=== PATIENT | male | born 1950 | race Caucasian/White ===

== ENCOUNTER 2024-01-08 09:30 | Outpatient (AMB) | payer MEDICARE, OTHER, SELFPAY ==
--- NOTE | 2024-01-08 09:26 | HO.SPINEOV ---
Intake Intake Visit Reasons: cervical stenosis Intake Note: Mr. Hi is here today for Neck pain that radiates towards the back Executive Director Of Nursing Required: No Allergies No Known Allergies Allergy (Verified 01/08/24 09:26) Assessment & Plan Assessment & Plan (1) Cervical radiculopathy: Code(s): M54.12 - Radiculopathy, cervical region Plan Dear colleague, Thank you for referring Gibran to our office today. He is a pleasant 73-year-old male who comes in today with a chief complaint of neck pain with shooting pains into his left arm. He states that this began back in July and reports no inciting incident. He sought evaluation by [facility] who attempted a left shoulder injection that did not provide much relief. When describing his radiation of pain he states it starts in his posterior neck over the top of his left shoulder down the posterior aspect of his left arm and terminates in his left hand. He reports associated symptoms of intermittent numbness/tingling that accompanies his shooting pain in a similar distribution. He does report significant pain in his left wrist, but reports this pain started abruptly in July, and denies any increased numbness/tingling with use, and denies nocturnal symptoms. He reports he has been to 6 weeks of physical therapy which he found was not helpful for him and only exacerbated his symptoms. He reports his neck pain worsens at night when attempting to lie down, and is somewhat alleviated with stretching/range of motion of his left arm. He is currently taking meloxicam to try and mitigate his symptoms with minimal relief. He also states he has exhausted [id number] remedies in an attempt to resolve his pain. PMH: History of cataract surgery, insomnia, anxiety, depression, hyperlipidemia, seasonal allergies. Social hx: Patient does not smoke, reports no substance use. Medications: Trazodone, bupropion, atorvastatin, citalopram, cetirizine, meloxicam. Allergies: NKDA. Physical exam: The patient has 5/5 strength in his upper and lower extremities. He does elicit pain to full strength testing when attempting to exhibit wrist flexion/extension and interossei resistance on the left. No acute sensational deficits, however the patient reports intermittent numbness and tingling of his left upper extremity. Reflexes 3+ in patella bilaterally, 2+ elsewhere. The patient is able to ambulate well and rises from a seated position without difficulty. (-) Chavez's, (-) clonus, (-) Tinel's at wrist bilaterally, (-) Phalen's bilaterally. Imaging review: MRI of the cervical spine completed at [place] shows diffuse spondylosis of the cervical spine. There is some loss of cervical lordosis seen from C4-6. There is posterior disc bulging at C5-6 and C6-7. There is moderate-severe left-sided foraminal stenosis at C5-6 and bilateral foraminal stenosis at C6-7 worse on the left which I would grade as moderate-severe. No cord signal change noted. Impression: Gibran is a pleasant 73-year-old male who comes in today with a chief complaint of posterior neck pain with shooting pain down his left arm and accompanied numbness/tingling since July 2023. He reports that the symptoms started abruptly, and is unable to identify an inciting incident. His symptoms are likely due to a left-sided cervical radiculopathy as a result of the left sided formainal stenosis noted on cervical MRI. He does complain of quite a bit of pain in his left wrist, however does not have a story that is consistent with carpal tunnel syndrome and has negative testing on exam for carpal tunnel. He states that his symptoms are significantly affecting his life at this point, he is unable to practice drumming which is 1 of his favorite past times, and is having difficulty sleeping at night due to the shooting pains he experiences when lying down. He reports he is now restricting what he does throughout the day and finds himself laying around the house much more due to his pain. We discussed the possibility of an ACDF at C5-6 and C6-7 to address his left-sided foraminal stenosis. He reports that he is at a point where he was willing to follow through with whatever recommendations we may have in order to alleviate his symptoms. I sent him for a set of flexion-extension x-rays of the cervical spine at the end of this visit, and informed him that I will be discussing his case with Dr. Swift who will review everything and make a surgical decision. I will call him next week after I am able to discuss this with Dr. Swift. Thank you for allowing us to care for your patient. The total time spent with this visit with this patient was 45 minutes reviewing history, physical exam, MRI imaging review, and implementation of treatment plan or further diagnostic testing Paramjit Swift MD,PhD [facility] Orders: Orders XR cervical spine 4V Today M54.12 - Radiculopathy, cervical region Coding Level of Care Code New Pt Level 4 (00628) Diagnoses Cervical radiculopathy M54.12
== END 2024-01-08 10:14 | disposition home or self-care (01) ==
PROVIDERS: PCP Internal Medicine; Referring Provider Physician Assistant; Visit Provider Physician Assistant
DX: M54.12 Radiculopathy, cervical region (principal)
CPT/HCPCS: 99204

== ENCOUNTER 2024-01-08 09:30 | Outpatient (REF) | payer MEDICARE, OTHER, SELFPAY ==
--- NOTE | ~2024-01-08 | XR_ITS ---
EXAMINATION: XR CERVICAL SPINE CLINICAL INFORMATION: Radiculopathy, cervical region COMPARISON: None available. TECHNIQUE: AP, lateral, lateral flexion and extension views of the cervical spine were obtained. FINDINGS: No fracture. Prevertebral soft tissues are within normal limits. There is marked disc space narrowing with marginal osteophyte formation at C5-C6 and C6-C7. There is also marked disc space narrowing at C7-T1. There is mild curve of the cervical spine, convex left. There is loss of the usual cervical lordosis. There is mild retrolisthesis of C3 respect to C4. XR/XR cervical spine 4V IMPRESSION: 1. Marked multilevel degenerative disc disease. 2. Loss of the usual cervical lordosis. 3. Mild retrolisthesis of C3 respect to C4, as discussed above.
== END 2024-01-08 09:31 | disposition home or self-care (01) ==
LOC: HO.HOSX 09:30
PROVIDERS: PCP Internal Medicine; Referring Provider Physician Assistant; Visit Provider Physician Assistant
DX: M54.12 Radiculopathy, cervical region (principal)
CPT/HCPCS: 72050; 99202

== ENCOUNTER → 2024-01-26 14:15 | Outpatient (BNV) | payer MEDICARE, OTHER, SELFPAY | PROVIDERS: Admitting Provider Neurological Surgery; PCP Internal Medicine; Visit Provider Internal Medicine | DX: I44.7 Left bundle-branch block, unspecified (principal) | CPT/HCPCS: 93010 ==

== ENCOUNTER 2024-01-28 | Day surgery (SDC) | payer MEDICARE, OTHER, SELFPAY ==
--- NOTE | 2024-01-26 | ECG_ITS ---
Test Reason : preop Blood Pressure : / mmHG Vent. Rate : 062 BPM Atrial Rate : 062 BPM P-R Int : 186 ms QRS Dur : 144 ms QT Int : 456 ms P-R-T Axes : 049 049 063 degrees QTc Int : 462 ms Normal sinus rhythm Left bundle branch block Abnormal ECG No previous ECGs available Referred By: Elaine Jerome Electronically Signed By:WILDER BLACK
[2024-01-26 13:23] VITALS: BP 162/89; PULSE 66; RESP 18; O2SAT 96; BMI 26.1
[2024-01-26 14:37] LABS: Hematocrit 41.9 % (42.0-52.0); Hemoglobin 14.7 g/dl (14.0-18.0); Mean Corpuscular HGB Conc 35.1 g/dl (31.0-36.0); Mean Corpuscular Hemoglobin 31.7 pg (27.0-33.0); Mean Corpuscular Volume 90.3 fL (80.0-98.0); Platelet Count 163 X10*3/uL (160-400); Red Blood Count 4.64 X10*6/uL (4.60-5.80); Red Cell Distribution Width 11.9 % (11.0-16.0); White Blood Count 5.5 X10*3/uL (4.8-10.8)
[2024-01-26 15:01] LABS: Anion Gap 11 (12-20); Blood Urea Nitrogen 14 mg/dL (9-16); Calcium 9.2 mg/dL (8.4-10.2); Carbon Dioxide 28 mmol/L (22-29); Chloride 107 mmol/L (96-108); Creatinine Clr Calc Pharmacy 52.4; Estimated Glomerular Filt Rate 57; Glucose Random 92 mg/dL (60-115); Potassium 4.4 mmol/L (3.3-5.1); Sodium 142 mmol/L (135-145)
--- NOTE | 2024-01-27 09:54 | HO.ANESPROP2 ---
Documented by User: Elaine Jerome NP 01/27/24 09:56 HPI - Anesthesia Eval Consult details Narrative: 73yo M for C5-6,C6-7 Ant Cerv Discectomy w/ fusion New LBBB on EKG. Pt denies CV symptoms. Nurse PAT only PMFSH Active Problems Active Problems: All Active Problems (Updated 01/26/24 @ 13:19 by Mila Figueroa RN) Cervical radiculopathy (Acute) Past Medical History Medical History Arthritis Weakness Numbness Seasonal allergies Depression Anxiety Insomnia Hyperlipidemia Surgical History Surgical History H/O colonoscopy Hx of cataract surgery Social History Social History Are you a primary healthcare administrative assistant to a significant other at home: No Do you presently have visiting nurse or other home services: No Patient Tobacco Use Status: Never used Tobacco Use of substances other than those prescribed or required for medical reasons: Yes Substance Use Type Other:: gummie Substance Use Frequency: Occasionally Have you been hit, kicked, punched, or otherwise hurt by someone within the past year? If so, by whom?: No Advance Directives: No Advance Directives Information Provided: No Advance Directives on File: No Recently lost weight without trying: No Eating poorly because of decreased appetite: No Nutrition Risks: No Nutritional Risk Poor oral hygiene: Yes (implants) Meds Allergies Allergy/AdvReac Type Severity Reaction Status Date / Time No Known Allergies Allergy Verified 01/28/24 10:18 Home Medications Medication Instructions Recorded Confirmed Last Taken Type atorvastatin 20 mg tablet 20 mg PO BEDTIME 01/25/24 01/26/24 Unknown History bupropion HCl 150 mg tablet,12 hr 150 mg PO BID 01/25/24 01/25/24 Unknown History sustained-release cetirizine 10 mg tablet 10 mg PO DAILY PRN Allergic 01/25/24 01/26/24 Unknown History Symptoms citalopram 40 mg tablet 40 mg PO DAILY 01/25/24 01/26/24 Unknown History meloxicam 15 mg tablet 15 mg PO DAILY PRN pain 01/25/24 01/26/24 Unknown History trazodone 50 mg tablet 50 - 100 mg PO BEDTIME PRN insomnia 01/25/24 01/26/24 Unknown History Exam Height,Weight and Vital Signs: Height 5 ft 8 in Weight 78.018 kg Last Vital Signs Pulse 66 01/26/24 13:23 Resp 18 01/26/24 13:23 BP 162/89 H 01/26/24 13:23 Pulse Ox 96 01/26/24 13:23 O2 Del Method Room Air 01/26/24 13:23 Pertinent Lab Results Pertinent Lab Results: Laboratory Tests 01/26/24 13:57 WBC 5.5 RBC 4.64 Hgb 14.7 Hct 41.9 L MCV 90.3 MCH 31.7 MCHC 35.1 RDW 11.9 Plt Count 163 MPV 10.0 Absolute Nucleated RBC 0.000 Nucleated RBC % (auto) 0.0 Sodium 142 Potassium 4.4 Chloride 107 Carbon Dioxide 28 Anion Gap 11 L BUN 14 Creatinine 1.25 Estim Creat Clear Calc 52.4 Estimated GFR 57 Random Glucose 92 Calcium 9.2 Narrative Narrative: EKG 01/2024 Vent. Rate : 062 BPM Atrial Rate : 062 BPM P-R Int : 186 ms QRS Dur : 144 ms QT Int : 456 ms P-R-T Axes : 049 049 063 degrees QTc Int : 462 ms Normal sinus rhythm Left bundle branch block Abnormal ECG No previous ECGs available Assessment and Plan Assessment Anesthesia Assessment: Chart Reviewed Documented by User: Drew Novoa MD 01/28/24 11:27 HPI - Anesthesia Eval Consult details Narrative: 73yo M for C5-6,C6-7 Ant Cerv Discectomy w/ fusion New LBBB on EKG. Pt denies CV symptoms. Nurse [facility] Past Medical History Medical History Arthritis Weakness Numbness Seasonal allergies Depression Anxiety Insomnia Hyperlipidemia Family History Family history of problems with anesthesia: No Surgical History Surgical History H/O colonoscopy Hx of cataract surgery History of Problems with Anesthesia: No Social History Social History Are you a primary healthcare administrative assistant to a significant other at home: No Do you presently have visiting nurse or other home services: No Patient Tobacco Use Status: Never used Tobacco Use of substances other than those prescribed or required for medical reasons: Yes Substance Use Type Other:: gummie Substance Use Frequency: Occasionally Have you been hit, kicked, punched, or otherwise hurt by someone within the past year? If so, by whom?: No Advance Directives: No Advance Directives Information Provided: No Advance Directives on File: No Recently lost weight without trying: No Eating poorly because of decreased appetite: No Nutrition Risks: No Nutritional Risk Poor oral hygiene: Yes (implants) Meds Allergies Allergy/AdvReac Type Severity Reaction Status Date / Time No Known Allergies Allergy Verified 01/28/24 10:18 Home Medications Medication Instructions Recorded Confirmed Last Taken Type atorvastatin 20 mg tablet 20 mg PO BEDTIME 01/25/24 01/26/24 Unknown History bupropion HCl 150 mg tablet,12 hr 150 mg PO BID 01/25/24 01/25/24 Unknown History sustained-release cetirizine 10 mg tablet 10 mg PO DAILY PRN Allergic 01/25/24 01/26/24 Unknown History Symptoms citalopram 40 mg tablet 40 mg PO DAILY 01/25/24 01/26/24 Unknown History meloxicam 15 mg tablet 15 mg PO DAILY PRN pain 01/25/24 01/26/24 Unknown History trazodone 50 mg tablet 50 - 100 mg PO BEDTIME PRN insomnia 01/25/24 01/26/24 Unknown History Exam Airway Mallampati Class: II TM Dist: >3cm Neck ROM: Limited Loose/Missing/Broken Teeth: Yes Heart: [id number] Lungs: cta b/l Assessment and Plan Assessment Anesthesia Assessment: Anesthesia Plan Discussed Final Anesthetic Review Family History of Problems with Anesthesia: No History of Problems with Anesthesia: No NPO: Yes ASA Class: III Final Preanesthetic Review: No Changes in Pt Med Stat, Meds/Allgs Chart Reviewed, Consent Obtained/Reviewed and Anes Risks/Benef Reviewed Patient Risk: Intermediate Procedure Risk: Intermediate Assessment/Block/Sedation in SS: Assess/Block/Sedation-SS Anesthetic Plan Anesthetic Plan: GA Disposition: Standard PACU
[2024-01-28] VITALS (15 sets, daily range): BP systolic 123–166; BP diastolic 70–88; PULSE 69–85; RESP 12–22; TEMP 36.6–36.7; O2SAT 93–97
--- NOTE | ~2024-01-28 | FL_ITS ---
EXAMINATION: XR FLUOROSCOPY WITH IMAGES CLINICAL INFORMATION: Cervical fusion COMPARISON: Cervical spine x-ray on 01/08/2024 TECHNIQUE: Fluoroscopy Supervised By: Dr. Swift. Fluoroscopy Time: 4.3sec. Cumulative Dose: 1.3870 mGy. DAP: 0.5257 Gycm2. Images: 1. FINDINGS: Fluoroscopy performed during cervical fusion. FL/FL guidance in OR IMPRESSION: Fluoroscopy performed in the OR. Please see the operative report for further information.
--- NOTE | 2024-01-28 07:15 | MHC.SHP ---
Pre-Procedural Eval Section A - 24 Hr Update-Section A only Date of Service: 01/28/24 The patient is an INPATIENT: No Changes since office visit: No Cold of Flu in the past 2 weeks, No New Medical Problems, No Changes in Medication and No Patient answered all questions The patient has been examined within 24 hours of the surgical procedure. The History & Physical has been completed within 30 days and I have reviewed it.: No Section B - Complete if H&P > 30 days Chief Complaint: Radiculopathy, cervical region Allergies: Allergies Allergy/AdvReac Type Severity Reaction Status Date / Time No Known Allergies Allergy Verified 01/08/24 09:26 Review of Systems Sugical H&P ROS: Negative: Constitution, Cardiovascular, Respiratory, Neurological, Psychiatric, Hem-Onc, Allergic/Immunologic, Gastrointestinal, Genitourinary, Musculoskeletal, Integumentary, Endocrine and Eyes/Ears/Nose/Throat Exam Surgical H&P Exam: Not Evaluated: HEENT, Not Evaluated: Heart, Not Evaluated: Lungs, Not Evaluated: Extremities, Not Evaluated: Abdomen, Not Evaluated: Skin and Not Evaluated: Neurological Plan Diagnosis/Plan: Unchanged C5-6, C6-7 ACDF Time Spent With Patient Time: Total time managing care of this patient today __8__ minutes.
[2024-01-28] MEDS: Lactated Ringers 1,000 ML 100 ML IVCONT (10:22)
[2024-01-28] MEDS: Gabapentin 300 MG CAPSULE PO (11:06)
[2024-01-28] MEDS: methocarbamoL 750 MG TABLET PO (11:06)
--- NOTE | 2024-01-28 13:57 | P.OP_ITS ---
Operative Note Operative Note Date of Service: 01/28/24 Narrative: Preoperative Diagnosis: Cervical radiculopathy due to degenerative disc disease Procedure: C5-C6, C6-C7 Anterior discectomy, arthrodesis and implantation cage ; C5-C7 anterior instrumentation ; local autograft; microscope Informed Consent was obtained for this operation. I have explained the nature, purpose and benefits of the operation. I have discussed the risks and benefit of the operation including possible complications or adverse events with patient/family. Alternative(s) were discussed with the patient with their relative benefits and risks as well as the consequences of not accepting the operation were included in obtaining consent. Surgeon: BRE FIGUEROA MD, PHD Procedure Assisted By: AMIRAH Triana Description of Procedure: This 73-year-old male suffering from left cervical radiculopathy. An MRI shows C5-6 C6-7 degenerative disc disease and foraminal stenosis. He was offered an anterior diskectomy and fusion of these levels. The procedure complications were explained. The patient was consented. The patient was brought to the operating room and endotracheally intubated. The patient was put in supine position with slight extension of the neck. Prep and drape was done followed by timeout. A mid cervical incision was made followed by opening of the platysma. The prevertebral fascia was reached following the natural planes while the physician assistant auto center manager provided manual retraction. The prevertebral fascia was opened to expose the disc space. A spinal needle was placed in the disk space to confirm the correct level with xray. The longus colli muscles were released bilaterally and a self retaining retractor was inserted. An initial diskectomy was done of the C5-6 and C6-7 disc spaces towards the posterior annulus. Two [place] pins were placed in the C5 and C6 vertebral bodies and distraction was give over the interspace.The microscope was brought in. The remainder of the discectomy was completed. A significant hypertrophied posterior longitudinal ligament was encountered. The posterior ligament was opened and resected to expose the underlying dura. Large osteophytes were resected from the body of C5-C6 and saved for autograft. Large osteophytes were resected from the bilateral foramina to decompress the bilateral C6 nerve roots. The endplates were prepared after which a 6 mm cage filled with autograft was inserted into the disc space. A separate attached plate was locked down with 2 x 14 mm screws as anterior instrumentation. Then attention was turned to the C6-7 disc space. Distraction was giving over the interspace. Again significant degeneration was encountered with large posterior osteophytes. The posterior longitudinal ligament was opened and resected. Osteophytes were resected from the body of C6 to decompress the spinal cord. Then more osteophytes were removed from the foramina and were causing significant foraminal stenosis. In the end good decompression of the spinal cord and exiting nerve root was obtained. The endplates were prepared after which a 6 mm cage was inserted into the disc space. A separate attached plate was locked down with 14 mm screws as anterior instrumentation. Final x-rays in AP and lateral projection showed a satisfactory position of the implants and anterior instrumentation. The physician assistant auto center manager took over. The [place] pin was removed. Hemostasis was done. He closed the incision in 2 layers with a 3-0 Vicryl. Steri-Strips used to approximate incision. An OpSite with Tegaderm was used to cover the incision. All sponge and needle counts were correct. Patient was extubated and transported in stable is to recovery room. Anesthesia: General Estimated Blood Loss (ml): 30 mL Duration of Surgery: 1 hour 15 Postoperative Plan: Discharge home Complications: None
--- NOTE | 2024-01-28 14:02 | PM.DS ---
DS: Providers Provider Date of Service: 01/28/24 Primary care physician: Radha Barrios MD DS: Summary Time Attestation Discharge Coordination Time (in mins): 15 Quality: Safe Use of Opioids Does Pt have an Active Cancer Diagnosis on the Problem List?: No Quality: Stroke Does the patient have a stroke diagnosis?: No Physical Exam Vital Signs: Vital Signs: Last Vital Signs Temp 98.1 F 01/28/24 10:31 Pulse 69 01/28/24 10:31 Resp 18 01/28/24 10:31 BP 159/79 H 01/28/24 10:31 Pulse Ox 97 01/28/24 10:31 O2 Del Method Room Air 01/28/24 10:31 BMI result Body Mass Index 26.1 Discharge Plan Discharge Anticipated Discharge Date/Time: 01/28/24 14:04 Patient Disposition: Home, Self-Care Discharge Diagnosis: S/P C5-6, C6-7 Referrals: Radha Voss MD [Primary Care Provider] - 1 Week Discharge Medications: New oxycodone 5 mg tablet 5 mg PO Q6H PRN (Reason: severe pain (scale score 7-10)) Qty: 30 0RF Rx Instructions: Partial Fill upon patient request. Continued bupropion HCl 150 mg tablet sustained-release 12 hr 150 mg PO BID atorvastatin 20 mg tablet 20 mg PO BEDTIME citalopram 40 mg tablet 40 mg PO DAILY trazodone 50 mg tablet 50 - 100 mg PO BEDTIME PRN (Reason: insomnia) meloxicam 15 mg tablet 15 mg PO DAILY PRN (Reason: pain) cetirizine 10 mg Tablet 10 mg PO DAILY PRN (Reason: Allergic Symptoms) Discharge Orders: Discharge Order (Routine); Ordered 01/28/24 Ordered By: Paramjit Fuller Diet: Advance to usual diet Activity on Discharge: As tolerated Stand Alone Forms: Patient Portal Discharge page Activity Restrictions/Additional Instructions: After your spinal surgery we ask you to observe the following restrictions/guidelines: Activity: It is normal to feel some discomfort as you increase your activity, but that will improve with time. We ask you avoid heavy lifting or acitivities that cause pain. As a general rule, 8lbs is a safe limit for lifting right after surgery. Walk as much as you feel comfortable but not to exhaustion. You will feel extra tired the first few days after surgery. Stay well hydrated. It is OK to walk up and down stairs You may return to driving when you are off narcotics (such as vicodin, oxycodone, dilaudid, etc), and you are back to normal functional capacity. If you have any concerns please check with office before driving. Return to work is specific to each patient and each surgery, so please speak with your doctor/PA at first follow up. Please bring paperwork such as FMLA at that time if you need it filled out. Medications: We will give you a short supply of narcotics after surgery (usually one weeks worth). If you need more please call the office but do not use more than prescribed. You will need to give our office 48 hours notice if you need narcotics refilled and we do not fill narcotics on weekends or evenings. If you are on a narcotic, it is a good idea to take a stool softener such as colace or senna to avoid constipation If you take blood thinner such as aspirin, Plavix, Coumadin, Effient, Eliquis etc for conditions such as Afib, DVT, Pulmonary embolus, coronary disease, stents etc please speak with your surgeon about specific details as to when you can resume these medications. You can resume NSAIDs on post op day 1 (eg: Motrin, Naproxen, etc). Follow up: Please call the office, , after surgery to arrange a 3 week follow up for wound check. Wound Care: You may remove your dressing on the first day after surgery. ?You may ?leave open to air. Please do not remove the steri strips underneath. they will fall off on their own in one week. IT IS NORMAL FOR THE WOUND TO OOZE OR BE BLOODY FOR A FEW DAYS AFTER SURGERY. ?IF THIS HAPPENS JUST PLACE NEW DRESSING OVER IT TO AVOID STAINING CLOTHES. You may shower on post op day # 1 We ask that you do not let the water soak the wound. If it does get wet, just towel dry lightly. Please do not scrub your incision or place any type of chemical/ointment on the wound. No tub baths, pools or jacuzzis for one month. If you have any leaking or redness from your wound, or fevers, please call the office. Care Plan Goals: Return to normal activity as tolerated Health Concerns: None Plan of Treatment: F/U in clinic in 2-3 weeks Assessment: Patient may d/c home. Surgery went as expected. No complications.
[2024-01-28] MEDS: fentaNYL citrate/PF 100 MCG/2 ML VIAL 50 MCG IVPUSH ×2 (15:25→16:00)
[2024-01-28] MEDS: oxyCODONE HCl Immed Release 5 MG TABLET PO (15:25)
== END 2024-01-28 16:54 | disposition home or self-care (01) ==
PROVIDERS: Nurse Practitioner; PCP Internal Medicine; Visit Provider Neurological Surgery
PROC: (CPT 22551; principal; 2024-01-28 13:00)
DX: M50.122 Cervical disc disorder at C5-C6 level with radiculopathy (principal); M50.123 Cervical disc disorder at C6-C7 level with radiculopathy; J30.2 Other seasonal allergic rhinitis; E78.5 Hyperlipidemia, unspecified; F41.8 Other specified anxiety disorders; G47.00 Insomnia, unspecified; Z79.899 Other long term (current) drug therapy
CPT/HCPCS: 22551; 22552; 22853; 20936; 22845; 36415; 80048; 85027; 93005; C1713; J0131; J0690; J1100; J2250; J2405; J2704; J3010

== ENCOUNTER → 2024-01-28 13:00 | Outpatient (BNV) | payer MEDICARE, OTHER, SELFPAY | PROVIDERS: Admitting Provider Neurological Surgery; PCP Internal Medicine; Visit Provider Neurological Surgery | DX: M50.122 Cervical disc disorder at C5-C6 level with radiculopathy (principal); M50.123 Cervical disc disorder at C6-C7 level with radiculopathy | CPT/HCPCS: 20936; 22551; 22552; 22845; 22853; 99499 ==

== ENCOUNTER 2024-02-19 09:35 | Outpatient (AMB) | payer MEDICARE, OTHER, SELFPAY ==
--- NOTE | 2024-02-19 09:40 | HO.SPINEOV ---
Intake Intake Visit Reasons: 1st post op Intake Note: Mr. Hi is here today for 1st post-op. Child And Adolescent Therapist Required: No Allergies No Known Allergies Allergy (Verified 01/28/24 10:18) Assessment & Plan Assessment & Plan (1) Cervical radiculopathy: Code(s): M54.12 - Radiculopathy, cervical region Plan: Carlos comes in today for his 1st follow-up appointment after having a C5-6 and C6-7 ACDF completed on January 27. He reports that he has been in quite a bit of pain since his surgery, and is having a difficult time with the shooting pains that have developed into his right arm. To recap he only had pains into his left arm prior to surgery, which he states have largely resolved. He also states that his upper and lower extremities feel like they are ?on fire? but is unable to provide much detail regarding this statement. He does not have a fever, and is not flush, but does feel generally hot. Additionally, he expressed concerns about his incision site being slightly raised compared to the rest of the skin on his neck. I sent him for a set of flexion/extension x-rays of his neck, which showed no changes when compared to fluoroscopy. He has 5/5 full strength in his upper extremities. His incision site appears good, and is well healing. He is able to rise from seated position and ambulates well. He also states that after taking his pain medicine he almost invariably vomits, and has been unable to keep down food for the last few days. I explained to him that this is a common complication with oxycodone, and he may be having an adverse reaction to the medication. I will be switching him to hydrocodone-acetaminophen and adding on ondansetron to be taken in conjunction with his pain medication. Additionally, I will be giving him a Medrol Dosepak an effort to aid reduction of postoperative inflammation. Ideally, this change in medication regimen will help mitigate symptoms until his postoperative inflammation can recede. He was encouraged to try this to medication regimen through the weekend to call us on Thursday/Thursday for some reason his symptoms continue to persist. If they do, we can obtain a CT scan of his neck. Paramjit Swift MD,PhD [facility] Orders: Orders XR cervical spine 4V Today M54.12 - Radiculopathy, cervical region Medications: New methylprednisolone (Medrol (Jorge)) PO PER PKG DIR 5 days 21 ea 0RF ondansetron 4 mg PO Q6-8H 30 tabs 0RF hydrocodone-acetaminophen 7.5-325 mg Partial Fill upon patient request. 1 tab PO Q6H PRN 30 tabs 0RF severe pain (scale score 7-10) Discontinued oxycodone Partial Fill upon patient request. Discontinued Reason: Doctor's Order 5 mg PO Q6H PRN 30 tabs 0RF severe pain (scale score 7-10) Coding Level of Care Code Global (31856) Diagnoses Cervical radiculopathy M54.12
== END 2024-02-19 10:19 | disposition home or self-care (01) ==
LOC: HO.HNS 09:35
PROVIDERS: PCP Internal Medicine; Visit Provider Physician Assistant
DX: M54.12 Radiculopathy, cervical region (principal)
CPT/HCPCS: 99024

== ENCOUNTER 2024-02-19 09:35 | Outpatient (REF) | payer MEDICARE, OTHER, SELFPAY ==
--- NOTE | ~2024-02-19 | XR_ITS ---
EXAMINATION: XR CERVICAL SPINE CLINICAL INFORMATION: Radiculopathy in the cervical region. COMPARISON: Fluoroscopic and OR images of 01/28/2024. Radiographs cervical spine dated 01/08/2024. TECHNIQUE: 4 views of the cervical spine were obtained inclusive of AP, lateral, flexion and extension views. FINDINGS: Postsurgical changes with disc spacers at C5-C6 and C6-C7. Hardware appears intact. Redemonstration of advanced degenerative changes with loss of disc space height at C7-T1. Redemonstration mild retrolisthesis of C3 on C4. Minimal anterolisthesis of C4 on C5 with flexion. Mild retrolisthesis of C6 on C7. Redemonstration of small calcifications in the soft tissues along the anterior aspect of C2 and C3-C4. XR/XR cervical spine 4V IMPRESSION: 1. Postsurgical changes with disc spacers at C5-C6 and C6-C7. Hardware appears intact. 2. Redemonstration of advanced degenerative changes with loss of disc space height at C7-T1.
== END 2024-02-19 09:36 | disposition home or self-care (01) ==
LOC: HO.HOSX 09:35
PROVIDERS: PCP Internal Medicine; Visit Provider Physician Assistant
DX: M54.12 Radiculopathy, cervical region (principal)
CPT/HCPCS: 72050; 99212

== ENCOUNTER 2024-03-23 15:21 | Outpatient (REF) | payer MEDICARE, OTHER, SELFPAY | END 2024-03-23 15:22 | disposition home or self-care (01) | LOC: HO.HOSX 15:21 | PROVIDERS: Visit Provider Physician Assistant | DX: Z13.89 Encounter for screening for other disorder (principal) ==

== ENCOUNTER 2024-03-24 11:26 | Outpatient (AMB) | payer MEDICARE, OTHER, SELFPAY ==
--- NOTE | 2024-03-24 11:31 | HO.SPINEOV ---
Intake Visit Reasons: 2nd post op with xrays Intake Note: Mr. Hi is here today for 2nd post-op. Pumper Gager Required: No Allergies No Known Allergies Allergy (Verified 03/24/24 11:32) Assessment & Plan Assessment & Plan (1) S/P cervical spinal fusion: Code(s): Z98.1 - Arthrodesis status Category: Surgical Plan Procedure: C5-6 and C6-7 ACDF Gibran comes in today for his 2nd postoperative visit. To recap he had a somewhat complicated postoperative course. Last time I saw him he is complaining of significant difficulty swallowing, and excessive postoperative neck pain. I did send him for a set of x-rays during his last visit which showed stable placement of anterior instrumentation. He was started on Medrol Dosepak and encouraged to reach back out to our office if his symptoms do not begin to subside. Thankfully today he is doing much better, and reports resolution of swallowing difficulties / severe neck pain. He does report that his left wrist and right triceps continues to get intermittent shooting pains but states this too is significantly better since surgery. He expressed gratitude regarding the medication regimen he was placed on during his last visit and states it helped him quite a bit. He declined a repeat set of cervical spine x-rays today. No new neurological deficits. Patient is able to ambulate well, rises from a seated position without difficulty. Incision sites are closed, well healing, with no signs of drainage. I will follow up again on Gibran in 2 months to ensure that he continues to heal well from his surgery. Paramjit Swift MD,PhD [facility] Coding Level of Care Code Global (22642) Diagnoses S/P cervical spinal fusion Z98.1
== END 2024-03-24 11:43 | disposition home or self-care (01) ==
PROVIDERS: PCP Internal Medicine; Visit Provider Physician Assistant
DX: Z98.1 Arthrodesis status (principal)
CPT/HCPCS: 99024

== ENCOUNTER 2024-03-24 11:26 | Outpatient (REF) | payer MEDICARE, OTHER, SELFPAY | END 2024-03-24 11:27 | disposition home or self-care (01) | LOC: HO.HOSX 11:26 | PROVIDERS: PCP Internal Medicine; Visit Provider Physician Assistant | DX: Z47.89 Encounter for other orthopedic aftercare (principal); Z98.1 Arthrodesis status | CPT/HCPCS: 99212 ==

== ENCOUNTER 2024-05-24 12:50 | Outpatient (AMB) | payer MEDICARE, OTHER, SELFPAY ==
--- NOTE | 2024-05-24 12:53 | HO.SPINEOV ---
Intake Visit Reasons: 2 month follow up Intake Note: Mr. Hi is here today for a 2 month F/u. Application Security Specialist Required: No Allergies No Known Allergies Allergy (Verified 03/24/24 11:32) Assessment & Plan Assessment & Plan (1) S/P cervical spinal fusion: Code(s): Z98.1 - Arthrodesis status Category: Medical Plan Procedure: C5-6 and C6-7 ACDF Gibran comes in today for his 3rd postoperative visit. He continues to do very well since the surgery. He reports that the pain in his left wrist has completely resolved. He no longer has numbness in his right arm/triceps area. He actually is having return of sensation in this area and is quite pleased with this overall. He states he feels 1,000% better when comparing his symptoms today versus pre-operatively. Overall he is very satisfied with the surgery. There is no need for continued routine follow-up with Gibran. He may be discharged as a patient. Paramjit Swift MD,PhD [facility] Coding Level of Care Code Global (95194) Diagnoses S/P cervical spinal fusion Z98.1
== END 2024-05-24 13:07 | disposition home or self-care (01) ==
PROVIDERS: PCP Internal Medicine; Visit Provider Physician Assistant
DX: Z98.1 Arthrodesis status (principal)
CPT/HCPCS: 99212

== ENCOUNTER → 2024-05-24 12:50 | Outpatient (BNVA) | payer MEDICARE, OTHER, SELFPAY | PROVIDERS: PCP Internal Medicine; Visit Provider Physician Assistant | DX: Z98.1 Arthrodesis status (principal) | CPT/HCPCS: 99212 ==

== ENCOUNTER 2025-04-26 11:30 | Outpatient (AMB) | payer MEDICARE, OTHER, SELFPAY ==
--- NOTE | 2025-04-26 11:34 | MHC.OFFVIS ---
Vital Signs 04/26/25 11:37 Height 5 ft 8 in Weight 179 lb BMI 27.2 BP 160/87 H Blood Pressure Location Lt brachial Position Sitting Respiration 18 Pulse 70 Pulse Source Pulse Oximeter Pulse Oximetry (%) 97 Oxygen Delivery Method Room Air Intake Visit Reasons: Osteoarthritis both hands Leather Softener Required: No Allergies No Known Allergies Allergy (Verified 04/26/25 11:37) HPI Comments Details: Carlos is very pleasant 74 years old gentleman who presents in my office with complains on pain in the left hand. He reports that this pain started many years ago. He noticed this pain with time getting severe. 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 See physical exam as below. He was in the past prescribed hydrocodone for dental procedures and he noticed that hydrocodone helps pain in the hand. His pain in the hand is intermittent. He requests me to prescribe him intermittent doses of the hydrocodone. He reports today pain 0/10. Sometimes his pain is very severe and he ranges at 8/10. He reports that he can sleep normally can do activities of daily living, can take care of himself, but he can not function normally. He reports that weather changes in movements aggravate his pain. Heat applications cold applications and topical medications make his pain better. The pain is most severe at nighttime. The pain is less severe in the morning. In terms of tissue damage he describes his pain as pulsing, throbbing, pounding, dull, sore, hurting, aching, heavy sensation. He tried physical therapy for his hand in the past and it was not helping him. He did x-ray in [facility] and those x-rays are not available for me. Apparently he was operated on his neck with ACDF by Dr. Temple and after this procedure he reported complete resolution of the left wrist pain and yet he presents in my office today with complains on pain in the left wrist and left hand. He never had any injections in his wrist. He never was seen by hand surgeon. His past medical history significant for only arthritis. Besides the ACDF surgery he had shoulder surgery in 2013. He denies smoking cigarettes drinking alcohol he drinks caffeinated beverages but he denies recreational drugs. [facility] Medical History Arthritis Weakness Numbness Seasonal allergies Depression Anxiety Insomnia Hyperlipidemia Surgical History H/O colonoscopy Hx of cataract surgery Social History Are you a primary home care liaison to a significant other at home: No Do you presently have visiting nurse or other home services: No Patient Tobacco Use Status: Never used Tobacco Review of Systems Const All systems reviewed & are unremarkable except as noted in HPI and below ENT Reports Normal hearing present Neuro Reports Normal hearing present, Denies Abnormal speech present, Denies confusion and Denies Sensory deficit (Neuro) Psych Denies confusion Physical Exam Vital Signs: Last Vital Signs Pulse 70 04/26/25 11:37 Resp 18 04/26/25 11:37 BP 160/87 H 04/26/25 11:37 Pulse Ox 97 04/26/25 11:37 Oxygen Delivery Method Room Air 04/26/25 11:37 BMI result Body Mass Index 27.2 Const General: no acute distress; No confusion Orientation/consciousness: patient oriented x3 and No confusion Eyes General: appearance normal, both eyes and all related structures Pupils: Equal, round and reactive pupils present EOM: EOMs intact bilaterally Neck Neck: Yes full ROM Chest Chest palpation & inspection: normal inspection of the chest Resp Effort & Inspection: normal respiratory effort, able to speak in complete sentences, normal respiratory pattern, no audible wheezes and no cough Cardio Jugular venous distension: no JVD GI Inspection: Yes normal to inspection Neuro General: patient oriented x3, gait normal and No confusion Cranial nerves: Yes CN's II-XII intact bilaterally, Yes Equal, round and reactive pupils present, Yes Normal hearing present and Yes Ability to bilaterally elevate shoulders present Speech: No Abnormal speech present Gait exam (Neuro): Normal gait present Motor exam (neuro): 5/5 motor strength present throughout Sensory Exam: No Sensory deficit (Neuro) Extrem Other: His bilateral hands on inspection exhibits signs of [place] and Stella nodes. Obvious signs of osteoarthritis. General: No pedal edema Psych Speech and movement: Normal speech and movement present Affect: normal affect Attitude: cooperative Thought process: Normal thought process present Thought content: Normal thought content present Insight: Good insight present (Psych) Judgement: Good judgement present (Psych) Assessment & Plan Assessment & Plan (1) Osteoarthritis of left hand: Code(s): M19.042 - Primary osteoarthritis, left hand Category: Medical Plan: This patient requested me to prescribe him intermittent doses of the hydrocodone for the it is intermittent pain. I explained to him that the more opioid medications he consumes the less effective it will become. Eventually it may actually aggravate his pain in the hand. I recommended him to continue home exercise program he learned from physical therapy. I offered him to refer him for hand surgeon for injections. He refused to go to physical therapy he refused to go to appointment with a hand surgeon. Therefore I am recommending him to continue topical medications, lidocaine patch, diclofenac rub, physical therapy. No new appointment is necessary (2) Left hand pain: Code(s): M79.642 - Pain in left hand Category: Medical Plan No new appointment is necessary. Coding Level of Care Code New Pt Level 3 (49179) Diagnoses Osteoarthritis of left hand M19.042 Left hand pain M79.642
[2025-04-26 11:37] VITALS: BP 160/87; PULSE 70; RESP 18; O2SAT 97; BMI 27.2
--- OUTSIDE RECORDS SUMMARY | 2025-04-26 13:29 | XMS_ITS | Encounter Summary ---
Author Organization [facility] [place] [address] Care Team Providers Care Tax Services Specialist Name Role Phone Radha Gonzalez MD Primary Care Prov ider Encounter Details Date Type Department Care Team (Late st Contact Info) Description 02/26/2025 Nurse Triage Adult Medicine [facility] [address] [place] [phone] Radha Gonzalez MD [address] [place] [id number] Social History Tobacco Use Types Packs/Day Years Used Date Smoking Tobacco: Never Smokeless Tobacco: Never Alcohol Use Standard Drinks/Week Comments Yes 0 (1 standard drink = 0.6 oz pur e alcohol) Housing Instability Answer Date Recorde d Are you worried that in the next 2 months you may not have stable housing? No 11/22/2024 Food Access & Nutrition Answer Date Rec orded Do you have access to a vari ety of food including fruits and vegetables? Yes 11/22/2024 Health Literacy Answer Date Recorded How often do you need to hav e someone help you when you read instructions, pamphlets, or other written material from your doctor or pharmacy? Never 11/22/2024 Caregiver: How often do you need to have someone help you when you read instructions, pamphlets, or other written material from your doctor or pharmacy? Not on file 11/22/2024 Financial Risk Answer Date Recorded How hard is it for you to pa y for the very basics like food, housing, medical care, and air conditioning / heating? Not very hard 11/22/2024 Transportation Answer Date Recorded Has the lack of transportati on kept you from meetings, work, or from getting things needed for daily living? No Has the lack of transportati on kept you from medical appointments or from getting medications? No 11/22/2024 Social Isolation Answer Date Recorded How often do you feel lonely or isolated from th ose around you? Never 11/22/2024 Food Risk Answer Date Recorded Within the past 12 months we worried whether our food would run out before we got money to buy more. Never true 11/22/2024 Within the past 12 months th e food we bought just didn't last and we didn't have money to get more. Never true 11/22/2024 Dependent Care Answer Date Recorded Do you need help finding or paying for care for your loved ones. For example, childcare administrator or elderly care for an older adult? No 11/22/2024 Education Answer Date Recorded Do you think completing more education or training, like finishing a GED, going to college, or learning a trade, would be helpful for you? No 11/22/2024 Employment and Income Answer Date Recor ded During the last four weeks, have you been actively looking for work? No 11/22/2024 Living Situation Answer Date Recorded What is your living situation? 0 11/22/2024 Sex and Gender Information Value Date Recorded Sex Assigned at Not on file Legal Sex Male 10:46 AM EST Gender Identity Not on file Sexual Orientation Not on file documented as of this encounter Progress Notes * Ninfa Bang RN - 03/01/2025 2:23 PM EDT Spoke with pt. Informed him of message If she doesn't want to give me anything I'll just get it from my friend He sts I finally found something that works Pain mostly in legs , lower back sometimes in shoulders. Pt. Sts he really needs to keep active andevery thing that was prescribed doesn't work . He was offered a percocet by a friend in the [facility] . He sts it was a 30 mg pill and he took half. (15mg) I slept like a baby for the first time he admitted to doing this x 3 nights and has slept better . I'm [place] and if she doesn't want to give it to me ill just get it from him I asked pt. If he has talked to pcp regarding this . Well no because I just found that it worked I advised pt. -To not take another persons prescription -I would send message to PCP for review - if pain worsens, develops weakness, cp, sob , numbness in legs to be evaluated in the ER. Pt. agrees * Radha Gonzalez MD - 03/01/2025 12:58 PM EDT He can increase the dose to 200mg at night * Lucero Burrell RN - 02/27/2025 11:11 AM EDT My chart message for muscle spasms. No relief with gabapentin MANJU 4/ with PCP and started on low dose gabapentin with referral to plaster block layer The gabapentin is taking the edge off the pain in the legs but nothing for the spasms that occur mostly at night. A couple times has taken more than just one Daily is taking 100 mg on occasion has taken a second a couple hours later. States the pain is secondary to the spasms Enjoys playing the drums but is afraid to play because then the spasms in the legs are worse that night. Asking if there is something for the spasms. Please advise documented in this encounter Plan of Treatment Upcoming Encounters Date Type Department Care Team (Late st Contact Info) Description 08/15/2025 9:45 AM EDT Office Visit Adult Medicine [address] [phone] Yared Musa MD [address] [place] [phone] documented as of this encounter Visit Diagnoses Not on filedocumented in this encounter Additional Health Concerns Assessment Noted Time PHQ-9 Depression Total Score: 0 02/04/20 25 3:24 PM EDT A fall risk assessment has been complete d for the patient 11/22/2024 10:53 AM EST documented as of this encounter Care Teams Tax Services Specialist Relationship Specialty Start Date End Date Radha Gonzalez MD [address] [place] [id number] PCP - General Internal Medicine 06/16/22 documented as of this encounter
== END 2025-04-26 11:55 | disposition home or self-care (01) ==
LOC: HO.PMC 11:31
PROVIDERS: PCP Internal Medicine; Referring Provider Internal Medicine; Visit Provider Anesthesiology
DX: M19.042 Primary osteoarthritis, left hand (principal); M79.642 Pain in left hand
CPT/HCPCS: 99203

== ENCOUNTER → 2025-04-26 11:30 | Outpatient (BNVA) | payer MEDICARE, OTHER, SELFPAY | PROVIDERS: PCP Internal Medicine; Referring Provider Internal Medicine; Visit Provider Anesthesiology | DX: M19.042 Primary osteoarthritis, left hand (principal); M79.642 Pain in left hand | CPT/HCPCS: 99202 ==